=== PATIENT | male | born 1930 | race Caucasian/White ===

== ENCOUNTER 2017-06-21 12:50 | Inpatient (IN) | payer OTHER ==
[2017-06-21] MEDS ORDERED: HumuLIN R SUBCUT PRN (13:14)
[2017-06-21] MEDS ORDERED: HEPARIN SODIUM IN D5W 25,000 UNITS/500 ML BAG IV PRN (13:18)
[2017-06-21] MEDS ORDERED: NS 1000 ML 1,000 ML IV SCH (14:00)
--- NOTE | 2017-06-21 15:56 | DR.H&P ---
H&P - History & Physical for Day of: H&P Date: 06/21/17 - Chief Complaint Chief Complaint: Right eye vision loss - Allergies Allergies/Adverse Reactions: Allergies Allergy/AdvReac Type Severity Reaction Status Date / Time MS No Known Drug Allergy Allergy Verified 07/15/13 10:49 [No Known Drug Allergy] - History of Present Illness History of Present Illness: Patient is a 86-year-old white male who is being admitted due to vision loss involving the right eye. Patient began experiencing visual loss in the right eye in late May 2017. The patient states that he first noticed vision loss when he was unable to see the year through the scope on his hunting rifle when his hunting partner could clearly see them. Patient's describes progressive right-sided visual loss since that time and has been evaluated by ophthalmology. Ophthalmology described the patient's visual loss as being vascular in origin. Patient subsequently undergone a CTA of the neck revealed high-grade bilateral internal carotid artery stenosis. The patient describes marked progressive visual loss in the right eye over the last several weeks has been experiencing minimal vision loss involving the left eye. The patient's case is been discussed with Dr. Jensen Graff at [facility] in [facility] who is an special effects technician also does carotid stenting. Dr. Graff agrees with the initiation of a heparin drip and transferred [facility] in [facility] for further workup. - Past Medical History Past Medical History: Coronary Artery Disease, Diabetes, Dyslipidemia, Hypothyroidism Additional Medical History: 1. Aortic valve stenosis. 2. BPH - Past Surgical History Additional Surgical History: Cardiac cath with stent placement - approx 15 years ago. Cataract surgery. Left knee replacement. Prostate microwave procedure - Family History Family Medical History: Coronary Artery Disease - Social History Does patient currently use any type of tobacco product: Yes (chewing tobacco) Have you used tobacco products in the last 12 months: Yes (chewing tobacco) Type of Tobacco Use: Cigarettes (Quit smoking many years ago, but continues to use chewing tobacco) Does any household member use tobacco: No - Review of Systems Constitutional: No Symptoms Reported Eyes: See HPI ENT: No Symptoms Reported Respiratory: No Symptoms Reported Cardiovascular: No Symptoms Reported Gastrointestinal: No Symptoms Reported Genitourinary: No Symptoms Reported Musculoskeletal: No Symptoms Reported Skin: No Symptoms Reported Neurological: No Symptoms Reported - Physical Exam Vital Signs: Blood Pressure 176/75 Oriented: Normal Eyes: Other (marked decrease vision involving the right eye) Ear: Normal Nose: Normal Throat: Normal Respiratory: Clear Throughout Cardiovascular: Normal : Normal Auscultation: Bowel Sounds: Normal Palpation: Normal Tenderness: Normal Skin: Normal Musculoskeletal: Normal Psychiatric: Normal Mood Description: Calm Affect: Angry, Normal Speech Pattern: Clear - Assessment/Plan (1) Acute visual loss Qualifiers: Laterality: right Qualified Code(s): H53.131 - Sudden visual loss, right eye Status: Acute Plan: 1. Admit to be CHF tentative plan is to transfer to [facility] in [facility] later today. 2. Heparin drip per protocol. 3. O2 2 L/m per nasal cannula. 4. Telemetry. 5. Chest x-ray. 6. CMP and CBC. 7. Fingerstick blood sugars every before meals and daily at bedtime. 8. Sliding scale regular insulin coverage for blood sugars greater than 200. 9. Continue home medications. 10. 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
[2017-06-21 16:15] LABS: BASOPHILS # (AUTO) 0.1 X10^3/uL (0.0-0.1); BASOPHILS % (AUTO) 0.8 % (0.2-1.0); EOSINOPHILS # (AUTO) 0.2 x10^3/uL (0.0-0.2); EOSINOPHILS % (AUTO) 2.7 % (0.9-2.9); HEMATOCRIT 38.1 % (42.0-54.0); HEMOGLOBIN 13.1 g/dL (13.5-18.0); LYMPHOCYTES # (AUTO) 1.4 X10^3/uL (1.3-2.9); LYMPHOCYTES % (AUTO) 18.7 % (21.0-51.0); MEAN CORPUSCULAR HEMOGLOBIN 30.5 pg (27.0-34.0); MEAN CORPUSCULAR HGB CONC 34.3 g/dL (33.0-35.0); MEAN CORPUSCULAR VOLUME 88.9 fL (80.0-100.0); MEAN PLATELET VOLUME 9.5 fL (7.4-11.0); MONOCYTES # (AUTO) 0.6 x10^3/uL (0.3-0.8); MONOCYTES % (AUTO) 8.6 % (0.0-13.0); NEUTROPHILS # (AUTO) 5.1 x10^3/uL (2.2-4.8); NEUTROPHILS % (AUTO) 69.2 % (42.0-75.0); PLATELET COUNT 217 X10^3/uL (150.0-450.0); RED BLOOD COUNT 4.29 X10^6/uL (4.7-6.0); RED CELL DISTRIBUTION WIDTH 13.5 % (11.6-16.5); WHITE BLOOD COUNT 7.4 X10^3/uL (3.6-10.0)
[2017-06-21] MEDS ORDERED: ULTRAM PO PRN (16:17)
[2017-06-21 16:24] LABS: ALANINE AMINOTRANSFERASE 19 Units/L (12-78); ALBUMIN 3.4 g/dL (3.4-5.0); ALKALINE PHOSPHATASE 65 Units/L (46-116); ASPARTATE AMINO TRANSFERASE 21 Units/L (15-37); BLOOD UREA NITROGEN 27 mg/dL (7-18); CALCIUM 8.9 mg/dL (8.5-10.1); CHLORIDE 104 mmol/L (98-107); CREATININE 1.47 mg/dL (0.70-1.30); SODIUM 142 mmol/L (136-145); TOTAL PROTEIN 7.3 g/dL (6.4-8.2); eGFR BLACK RACES 58 (>60); eGFR NON BLACK RACES 48 (>60)
[2017-06-21] MEDS ORDERED: HEPARIN SODIUM INJ 5000 UNITS ONE (16:43)
[2017-06-21] MEDS ORDERED: HEPARIN SODIUM INJ 5000 UNITS IVP ONE (16:45)
[2017-06-21] MEDS ORDERED: ASPIRIN EC 81 MG PO SCH (17:00)
--- NOTE | 2017-06-21 17:24 | RAD ---
Examination: Portable AP chest History: Ophthalmic artery occlusion Comparison reference: None Findings: Normal heart size, clear lungs and pleural spaces. There is no mediastinal or hilar lesion. Impression: No acute abnormality demonstrated. Reported By:
[2017-06-21 17:31] VITALS: BMI 26.7
[2017-06-21 18:22] VITALS: BP 156/67
[2017-06-21] MEDS ORDERED: FLOMAX PO SCH (21:00)
[2017-06-21] MEDS ORDERED: ZOCOR TAB 20 MG PO SCH (21:00)
[2017-06-22] MEDS ORDERED: MIRAPEX TAB 0.25 MG PO SCH (09:00)
[2017-06-22] MEDS ORDERED: PATIENT'S HOME MEDICATION (Pramipexole Di-Hcl [Pramipexole Dihydrochloride] 1 TAB) PO SCH (09:00)
[2017-06-22] MEDS ORDERED: IMDUR PO SCH (09:00)
[2017-06-22] MEDS ORDERED: SYNTHROID 137 mcg TAB PO SCH (09:00)
== END 2017-06-21 18:20 | disposition short-term general hospital (02) | DRG 123 ==
LOC: ICU 12:50 → UNDOADMIN 12:50 → ICU 15:05
PROVIDERS: ADMIT Internal Medicine; ATTEND Internal Medicine
DX: H53.131 Sudden visual loss, right eye (principal); I65.23 Occlusion and stenosis of bilateral carotid arteries; I25.10 Atherosclerotic heart disease of native coronary artery without angina pectoris; E78.2 Mixed hyperlipidemia; E03.8 Other specified hypothyroidism; R94.31 Abnormal electrocardiogram [ECG] [EKG]; E11.65 Type 2 diabetes mellitus with hyperglycemia
CPT/HCPCS: 36415; 71010; 80053; 85025; 85730; 93005; 93010; A4216; A4222; J1644